=== PATIENT | female | born 1960 ===

== ENCOUNTER 2021-01-29 16:22 | Inpatient (IN) | payer BC ==
[2021-01-29 17:45] LABS: #Lymphocytes 0.9 thou/uL (1.20-3.40); #Monocytes 0.9 thou/uL (0.11-0.59); #Neutrophils 6.4 thou/uL (1.40-6.50); %Basophils 0.2 % (0.0-1.0); %Eosinophils 0.2 % (0.0-10.0); %Lymphocytes 10.8 % (21.0-51.0); %Monocytes 10.8 % (0.0-10.0); %Neutrophils 78.1 % (42.0-75.0); Hemoglobin 15.2 g/dL (12.0-16.0); Mean Corpuscular HGB CONC 32.3 g/dL (32.0-36.0); Mean Corpuscular Hemoglobin 29.4 pg (27.0-31.0); Mean Corpuscular Volume 90.9 fL (78.0-98.0); Mean Platelet Volume 7.6 fL (7.4-10.4); Platelet Count 276 thou/uL (130-400); RBC Distribution Width 11.1 % (11.5-14.5); Red Blood Cell (RBC) Count 5.16 mill/uL (4.20-5.40); White Blood Cell (WBC) Count 8.2 thou/uL (4.8-10.8)
[2021-01-29 18:05] LABS: ALT (SGPT) 13 U/L (8-55); AST (SGOT) 21 U/L (5-34); Albumin 3.7 g/dL (3.5-5.0); Alkaline Phosphatase 58 U/L (40-110); Anion Gap 20 mmol/L (10-20); BUN (Urea Nitrogen) 12 mg/dL (9.8-20.1); Bilirubin, Total 0.5 mg/dL (0.2-1.2); Calc. Creatinine Clearance 0 mL/min (70-130); Calcium 9.5 mg/dL (7.8-10.44); Carbon Dioxide 17 mmol/L (22-29); Chloride 96 mmol/L (98-107); Globulin 3.9 g/dL (2.4-3.5); Glucose 312 mg/dL (70-105); Potassium 4.4 mmol/L (3.5-5.1); Protein, Total 7.6 g/dL (6.0-8.3); Sodium 129 mmol/L (136-145)
[2021-01-29 19:23] LABS: SARS-CoV-2 NAA Rapid Test DETECTED (NotDetected)
[2021-01-29] MEDS ORDERED: Ondansetron ODT 4 MG TAB PO PRN (21:42)
[2021-01-29] MEDS ORDERED: Ondansetron PF 4 MG/2 ML Vial IVP PRN (21:42)
[2021-01-29] MEDS ORDERED: Acetaminophen 650 MG Suppository PR PRN (21:42)
[2021-01-30] MEDS ORDERED: Dextrose 5% in Water 1,000 ML IV PRN (01:03)
[2021-01-30] MEDS ORDERED: Dextrose 50% Abboject 50 ML SYRINGE SLOW IVP PRN (01:03)
[2021-01-30] MEDS ORDERED: Insulin Regular 300 UNITS/3 ML VIAL SC PRN (01:03)
[2021-01-30] MEDS ORDERED: Enoxaparin Sodium 40 MG/0.4 ML SYRINGE SC SCH ×2 (02:30→09:00)
[2021-01-30 04:42] VITALS: BMI 27.4
[2021-01-30] MEDS: HumaLOG 300 UNITS/3 ML VIAL SC PRN ×4 (05:54→21:50)
[2021-01-30 06:06] LABS: #Lymphocytes 0.9 thou/uL (1.20-3.40); #Monocytes 0.8 thou/uL (0.11-0.59); #Neutrophils 5.6 thou/uL (1.40-6.50); %Basophils 0.4 % (0.0-1.0); %Eosinophils 0.1 % (0.0-10.0); %Lymphocytes 12.7 % (21.0-51.0); %Monocytes 11.2 % (0.0-10.0); %Neutrophils 75.6 % (42.0-75.0); Hemoglobin 14.5 g/dL (12.0-16.0); Mean Corpuscular HGB CONC 31.3 g/dL (32.0-36.0); Mean Corpuscular Hemoglobin 28.4 pg (27.0-31.0); Mean Corpuscular Volume 90.9 fL (78.0-98.0); Mean Platelet Volume 7.2 fL (7.4-10.4); Platelet Count 292 thou/uL (130-400); RBC Distribution Width 11.3 % (11.5-14.5); White Blood Cell (WBC) Count 7.4 thou/uL (4.8-10.8)
[2021-01-30 06:27] LABS: Anion Gap 16 mmol/L (10-20); BUN (Urea Nitrogen) 13 mg/dL (9.8-20.1); Calc. Creatinine Clearance 100 mL/min (70-130); Calcium 9.3 mg/dL (7.8-10.44); Carbon Dioxide 19 mmol/L (22-29); Chloride 98 mmol/L (98-107); Glucose 315 mg/dL (70-105); Potassium 3.9 mmol/L (3.5-5.1); Sodium 129 mmol/L (136-145)
[2021-01-30] MEDS ORDERED: Dexamethasone 4 mg/ml Vial SLOW IVP SCH (09:00)
[2021-01-30] MEDS: Acetaminophen 325 MG TAB PO PRN ×2 (09:23→21:17)
[2021-01-30] MEDS: Dexamethasone 4 mg/ml Vial SLOW IVP SCH ×2 (09:23→21:15)
[2021-01-30] MEDS: Cholecalciferol (Vitamin D3) 400 UNITS TAB PO SCH (09:24)
[2021-01-30] MEDS: Ascorbic Acid 500 mg Chewable Tablet PO SCH (09:24)
[2021-01-30] MEDS: Zinc Sulfate 220 MG CAP PO SCH (09:24)
[2021-01-30] MEDS: Benzonatate 100 MG CAP PO PRN ×3 (09:48→21:16)
[2021-01-30] MEDS: Guaifenesin DM 100-10/5 ML UDCUP PO PRN ×2 (11:06→21:18)
[2021-01-30] MEDS ORDERED: HumaLOG 300 UNITS/3 ML VIAL SC SCH (13:15)
[2021-01-30] MEDS ORDERED: sulfaSALAzine 500 MG TAB PO SCH (21:00)
[2021-01-30] MEDS: Enoxaparin Sodium 40 MG/0.4 ML SYRINGE SC SCH (21:16)
[2021-01-30] MEDS: Famotidine 20 MG TAB PO SCH (21:16)
[2021-01-30] MEDS: Melatonin 3 MG TAB PO PRN (21:17)
[2021-01-31] MEDS: HumaLOG 300 UNITS/3 ML VIAL SC PRN ×4 (04:32→21:08)
[2021-01-31] MEDS: Guaifenesin DM 100-10/5 ML UDCUP PO PRN ×4 (04:36→21:07)
[2021-01-31] MEDS: Benzonatate 100 MG CAP PO PRN ×3 (04:36→21:06)
[2021-01-31 06:05] LABS: Hemoglobin 14.8 g/dL (12.0-16.0); Mean Corpuscular HGB CONC 33.8 g/dL (32.0-36.0); Mean Corpuscular Hemoglobin 30.7 pg (27.0-31.0); Mean Corpuscular Volume 90.6 fL (78.0-98.0); Mean Platelet Volume 7.3 fL (7.4-10.4); Platelet Count 339 thou/uL (130-400); RBC Distribution Width 11.1 % (11.5-14.5); Red Blood Cell (RBC) Count 4.82 mill/uL (4.20-5.40); White Blood Cell (WBC) Count 5.7 thou/uL (4.8-10.8)
[2021-01-31 06:14] LABS: Anion Gap 12 mmol/L (10-20); BUN (Urea Nitrogen) 18 mg/dL (9.8-20.1); CRP (Inflammatory) 13.63 mg/dL (= or < 0.5); Calc. Creatinine Clearance 100 mL/min (70-130); Calcium 9.6 mg/dL (7.8-10.44); Carbon Dioxide 23 mmol/L (22-29); Chloride 98 mmol/L (98-107); Glucose 403 mg/dL (70-105); Potassium 4.3 mmol/L (3.5-5.1); Sodium 129 mmol/L (136-145)
[2021-01-31 06:47] LABS: Band 19 % (5-11); Lymphocytes 26 % (21-51); MDiff Complete? YES; Monocytes 4 % (0-10); Neutrophil 43 % (42-75); Reactive Lymphocytes 8 % (0-10)
[2021-01-31] MEDS: Cholecalciferol (Vitamin D3) 400 UNITS TAB PO SCH (09:02)
[2021-01-31] MEDS: Zinc Sulfate 220 MG CAP PO SCH (09:03)
[2021-01-31] MEDS: Dexamethasone 4 mg/ml Vial SLOW IVP SCH ×2 (09:03→21:07)
[2021-01-31] MEDS: Famotidine 20 MG TAB PO SCH ×2 (09:03→21:06)
[2021-01-31] MEDS: Ascorbic Acid 500 mg Chewable Tablet PO SCH (09:03)
[2021-01-31] MEDS: Enoxaparin Sodium 40 MG/0.4 ML SYRINGE SC SCH ×2 (09:03→21:07)
[2021-01-31] MEDS: Melatonin 3 MG TAB PO PRN (21:06)
[2021-01-31] MEDS ORDERED: Dextrose 5% in Water 1,000 ML IV PRN (23:54)
[2021-01-31] MEDS ORDERED: Dextrose 50% Abboject 50 ML SYRINGE SLOW IVP PRN (23:54)
[2021-01-31] MEDS ORDERED: HumaLOG 300 UNITS/3 ML VIAL SC SCH (23:59)
[2021-02-01] MEDS: HumaLOG 300 UNITS/3 ML VIAL SC PRN ×4 (05:27→20:29)
[2021-02-01 06:26] LABS: Hemoglobin 14.4 g/dL (12.0-16.0); Mean Corpuscular HGB CONC 33.3 g/dL (32.0-36.0); Mean Corpuscular Volume 90.1 fL (78.0-98.0); Mean Platelet Volume 7.5 fL (7.4-10.4); Platelet Count 450 thou/uL (130-400); Red Blood Cell (RBC) Count 4.81 mill/uL (4.20-5.40); White Blood Cell (WBC) Count 9.7 thou/uL (4.8-10.8)
[2021-02-01 06:32] LABS: Anion Gap 11 mmol/L (10-20); BUN (Urea Nitrogen) 24 mg/dL (9.8-20.1); CRP (Inflammatory) 5.95 mg/dL (= or < 0.5); Calc. Creatinine Clearance 93 mL/min (70-130); Calcium 9.4 mg/dL (7.8-10.44); Carbon Dioxide 25 mmol/L (22-29); Chloride 97 mmol/L (98-107); Glucose 428 mg/dL (70-105); Potassium 4.1 mmol/L (3.5-5.1); Sodium 129 mmol/L (136-145)
[2021-02-01 06:52] LABS: Band 10 % (5-11); Lymphocytes 14 % (21-51); MDiff Complete? YES; Monocytes 7 % (0-10); Neutrophil 65 % (42-75); Reactive Lymphocytes 4 % (0-10)
[2021-02-01] MEDS ORDERED: Insulin Glargine 5 UNITS in Pre-Filled Syringe 1 EACH SC SCH (09:00)
[2021-02-01] MEDS: Zinc Sulfate 220 MG CAP PO SCH (10:30)
[2021-02-01] MEDS: Dexamethasone 4 mg/ml Vial SLOW IVP SCH (10:30)
[2021-02-01] MEDS: Enoxaparin Sodium 40 MG/0.4 ML SYRINGE SC SCH ×2 (10:30→20:27)
[2021-02-01] MEDS: Cholecalciferol (Vitamin D3) 400 UNITS TAB PO SCH (10:31)
[2021-02-01] MEDS: Ascorbic Acid 500 mg Chewable Tablet PO SCH (10:31)
[2021-02-01] MEDS: Famotidine 20 MG TAB PO SCH ×2 (10:31→20:26)
[2021-02-01] MEDS: Guaifenesin DM 100-10/5 ML UDCUP PO PRN ×2 (10:32→20:25)
[2021-02-01] MEDS: Lantus 1000 UNITS/10 ML VIAL SC SCH (10:34)
[2021-02-01] MEDS ORDERED: Sodium Chloride 0.9% 1,000 ML IV SCH (17:15)
[2021-02-01] MEDS: Benzonatate 100 MG CAP PO PRN (20:26)
[2021-02-01] MEDS: Melatonin 3 MG TAB PO PRN (20:26)
[2021-02-01] MEDS ORDERED: Lantus 1000 UNITS/10 ML VIAL SC SCH (21:00)
[2021-02-02] MEDS: HumaLOG 300 UNITS/3 ML VIAL SC PRN ×4 (05:12→20:23)
[2021-02-02 06:20] LABS: #Monocytes 0.8 thou/uL (0.11-0.59); #Neutrophils 5.5 thou/uL (1.40-6.50); %Basophils 0.1 % (0.0-1.0); %Eosinophils 0.3 % (0.0-10.0); %Lymphocytes 13.3 % (21.0-51.0); %Monocytes 10.9 % (0.0-10.0); %Neutrophils 75.4 % (42.0-75.0); Hemoglobin 13.3 g/dL (12.0-16.0); Mean Corpuscular Hemoglobin 29.8 pg (27.0-31.0); Mean Corpuscular Volume 90.6 fL (78.0-98.0); Mean Platelet Volume 6.8 fL (7.4-10.4); Platelet Count 429 thou/uL (130-400); RBC Distribution Width 11.1 % (11.5-14.5); Red Blood Cell (RBC) Count 4.47 mill/uL (4.20-5.40); White Blood Cell (WBC) Count 7.3 thou/uL (4.8-10.8)
[2021-02-02 06:50] LABS: Anion Gap 9 mmol/L (10-20); BUN (Urea Nitrogen) 22 mg/dL (9.8-20.1); CRP (Inflammatory) 2.87 mg/dL (= or < 0.5); Calc. Creatinine Clearance 104 mL/min (70-130); Calcium 8.7 mg/dL (7.8-10.44); Carbon Dioxide 24 mmol/L (22-29); Chloride 101 mmol/L (98-107); Glucose 351 mg/dL (70-105); Potassium 3.9 mmol/L (3.5-5.1); Sodium 130 mmol/L (136-145)
[2021-02-02] MEDS: Famotidine 20 MG TAB PO SCH ×2 (08:55→20:22)
[2021-02-02] MEDS: Cholecalciferol (Vitamin D3) 400 UNITS TAB PO SCH (08:55)
[2021-02-02] MEDS: Ascorbic Acid 500 mg Chewable Tablet PO SCH (08:56)
[2021-02-02] MEDS: Dexamethasone 4 mg/ml Vial SLOW IVP SCH (08:56)
[2021-02-02] MEDS: Zinc Sulfate 220 MG CAP PO SCH (08:56)
[2021-02-02] MEDS: Benzonatate 100 MG CAP PO PRN ×2 (08:56→20:22)
[2021-02-02] MEDS: Guaifenesin DM 100-10/5 ML UDCUP PO PRN ×2 (08:57→20:23)
[2021-02-02] MEDS: Lantus 1000 UNITS/10 ML VIAL SC SCH ×2 (08:57→20:24)
[2021-02-02] MEDS: Enoxaparin Sodium 40 MG/0.4 ML SYRINGE SC SCH ×2 (08:57→20:22)
[2021-02-02] MEDS ORDERED: Lantus 1000 UNITS/10 ML VIAL SC SCH (10:45)
[2021-02-02] MEDS: Melatonin 3 MG TAB PO PRN (20:22)
[2021-02-02] MEDS: Acetaminophen 325 MG TAB PO PRN (20:22)
[2021-02-03] MEDS: HumaLOG 300 UNITS/3 ML VIAL SC PRN ×4 (05:14→21:09)
[2021-02-03] MEDS: Ascorbic Acid 500 mg Chewable Tablet PO SCH (10:20)
[2021-02-03] MEDS: Zinc Sulfate 220 MG CAP PO SCH (10:20)
[2021-02-03] MEDS: Cholecalciferol (Vitamin D3) 400 UNITS TAB PO SCH (10:20)
[2021-02-03] MEDS: Enoxaparin Sodium 40 MG/0.4 ML SYRINGE SC SCH ×2 (10:20→21:09)
[2021-02-03] MEDS: Dexamethasone 4 mg/ml Vial SLOW IVP SCH (10:21)
[2021-02-03] MEDS: Famotidine 20 MG TAB PO SCH ×2 (10:21→21:08)
[2021-02-03] MEDS: Lantus 1000 UNITS/10 ML VIAL SC SCH ×2 (10:22→21:08)
[2021-02-03] MEDS: Guaifenesin DM 100-10/5 ML UDCUP PO PRN (13:55)
[2021-02-03] MEDS: Benzonatate 100 MG CAP PO PRN (13:55)
[2021-02-04] MEDS: HumaLOG 300 UNITS/3 ML VIAL SC PRN ×5 (05:26→20:24)
[2021-02-04] MEDS: Ascorbic Acid 500 mg Chewable Tablet PO SCH (08:15)
[2021-02-04] MEDS: Famotidine 20 MG TAB PO SCH ×2 (08:15→20:23)
[2021-02-04] MEDS: Dexamethasone 4 MG TAB PO SCH (08:15)
[2021-02-04] MEDS: Enoxaparin Sodium 40 MG/0.4 ML SYRINGE SC SCH ×2 (08:15→20:23)
[2021-02-04] MEDS: Cholecalciferol (Vitamin D3) 400 UNITS TAB PO SCH (08:15)
[2021-02-04] MEDS: Zinc Sulfate 220 MG CAP PO SCH (08:16)
[2021-02-04] MEDS: Lantus 1000 UNITS/10 ML VIAL SC SCH ×2 (08:16→20:24)
[2021-02-04] MEDS: Benzonatate 100 MG CAP PO PRN ×2 (09:13→16:52)
[2021-02-04] MEDS: GUAIFENESIN DM SF 5 ML UDCUP PO PRN ×2 (13:20→23:19)
[2021-02-05] MEDS: HumaLOG 300 UNITS/3 ML VIAL SC PRN ×4 (04:36→20:41)
[2021-02-05 05:51] LABS: #Basophils 0.1 thou/uL (0.0-0.2); #Eosinphils 0.1 thou/uL (0.0-0.7); #Lymphocytes 3.1 thou/uL (1.20-3.40); #Monocytes 0.9 thou/uL (0.11-0.59); #Neutrophils 5.8 thou/uL (1.40-6.50); %Basophils 0.9 % (0.0-1.0); %Eosinophils 0.8 % (0.0-10.0); %Lymphocytes 31.2 % (21.0-51.0); %Neutrophils 58.1 % (42.0-75.0); Hemoglobin 14.5 g/dL (12.0-16.0); Mean Corpuscular HGB CONC 32.6 g/dL (32.0-36.0); Mean Corpuscular Hemoglobin 29.5 pg (27.0-31.0); Mean Corpuscular Volume 90.5 fL (78.0-98.0); Mean Platelet Volume 6.4 fL (7.4-10.4); Platelet Count 516 thou/uL (130-400); Red Blood Cell (RBC) Count 4.92 mill/uL (4.20-5.40); White Blood Cell (WBC) Count 9.9 thou/uL (4.8-10.8)
[2021-02-05 06:17] LABS: Anion Gap 10 mmol/L (10-20); BUN (Urea Nitrogen) 18 mg/dL (9.8-20.1); Calc. Creatinine Clearance 89 mL/min (70-130); Calcium 9.1 mg/dL (7.8-10.44); Carbon Dioxide 26 mmol/L (22-29); Chloride 97 mmol/L (98-107); Glucose 355 mg/dL (70-105); Potassium 4.1 mmol/L (3.5-5.1); Sodium 129 mmol/L (136-145)
[2021-02-05] MEDS: Lantus 1000 UNITS/10 ML VIAL SC SCH ×2 (08:04→20:40)
[2021-02-05] MEDS: Enoxaparin Sodium 40 MG/0.4 ML SYRINGE SC SCH ×2 (08:05→20:43)
[2021-02-05] MEDS: Dexamethasone 4 MG TAB PO SCH (08:05)
[2021-02-05] MEDS: Zinc Sulfate 220 MG CAP PO SCH (08:05)
[2021-02-05] MEDS: Famotidine 20 MG TAB PO SCH ×2 (08:05→20:40)
[2021-02-05] MEDS: Cholecalciferol (Vitamin D3) 400 UNITS TAB PO SCH (08:05)
[2021-02-05] MEDS: Ascorbic Acid 500 mg Chewable Tablet PO SCH (08:05)
[2021-02-05] MEDS: Benzonatate 100 MG CAP PO PRN (08:08)
[2021-02-05] MEDS: GUAIFENESIN DM SF 5 ML UDCUP PO PRN (13:37)
[2021-02-06] MEDS: HumaLOG 300 UNITS/3 ML VIAL SC PRN ×4 (05:07→20:30)
[2021-02-06 06:51] LABS: #Basophils 0.1 thou/uL (0.0-0.2); #Eosinphils 0.1 thou/uL (0.0-0.7); #Lymphocytes 2.2 thou/uL (1.20-3.40); #Neutrophils 7.1 thou/uL (1.40-6.50); %Basophils 0.9 % (0.0-1.0); %Eosinophils 0.7 % (0.0-10.0); %Lymphocytes 20.9 % (21.0-51.0); %Monocytes 9.9 % (0.0-10.0); %Neutrophils 67.6 % (42.0-75.0); Mean Corpuscular HGB CONC 33.7 g/dL (32.0-36.0); Mean Corpuscular Hemoglobin 30.7 pg (27.0-31.0); Mean Corpuscular Volume 91.1 fL (78.0-98.0); Mean Platelet Volume 6.6 fL (7.4-10.4); Platelet Count 559 thou/uL (130-400); RBC Distribution Width 11.2 % (11.5-14.5); Red Blood Cell (RBC) Count 4.57 mill/uL (4.20-5.40); White Blood Cell (WBC) Count 10.5 thou/uL (4.8-10.8)
[2021-02-06 07:10] LABS: Anion Gap 10 mmol/L (10-20); BUN (Urea Nitrogen) 23 mg/dL (9.8-20.1); CRP (Inflammatory) 0.94 mg/dL (= or < 0.5); Calc. Creatinine Clearance 87 mL/min (70-130); Calcium 9.2 mg/dL (7.8-10.44); Carbon Dioxide 28 mmol/L (22-29); Chloride 96 mmol/L (98-107); Glucose 335 mg/dL (70-105); Potassium 4.3 mmol/L (3.5-5.1); Sodium 130 mmol/L (136-145)
[2021-02-06] MEDS: Cholecalciferol (Vitamin D3) 400 UNITS TAB PO SCH (08:39)
[2021-02-06] MEDS: Dexamethasone 4 MG TAB PO SCH (08:40)
[2021-02-06] MEDS: Ascorbic Acid 500 mg Chewable Tablet PO SCH (08:40)
[2021-02-06] MEDS: Zinc Sulfate 220 MG CAP PO SCH (08:40)
[2021-02-06] MEDS: Famotidine 20 MG TAB PO SCH ×2 (08:40→20:32)
[2021-02-06] MEDS: Lantus 1000 UNITS/10 ML VIAL SC SCH ×2 (08:41→20:30)
[2021-02-06] MEDS: Enoxaparin Sodium 40 MG/0.4 ML SYRINGE SC SCH ×2 (08:42→19:49)
[2021-02-07] MEDS: Ascorbic Acid 500 mg Chewable Tablet PO SCH (08:31)
[2021-02-07] MEDS: Zinc Sulfate 220 MG CAP PO SCH (08:31)
[2021-02-07] MEDS: Cholecalciferol (Vitamin D3) 400 UNITS TAB PO SCH (08:31)
[2021-02-07] MEDS: Dexamethasone 4 MG TAB PO SCH (08:31)
[2021-02-07] MEDS: Famotidine 20 MG TAB PO SCH ×2 (08:32→20:31)
[2021-02-07] MEDS: Lantus 1000 UNITS/10 ML VIAL SC SCH ×2 (08:33→20:32)
[2021-02-07] MEDS: Enoxaparin Sodium 40 MG/0.4 ML SYRINGE SC SCH ×2 (08:46→20:31)
[2021-02-07] MEDS: HumaLOG 300 UNITS/3 ML VIAL SC PRN ×3 (12:30→20:32)
[2021-02-08] MEDS: HumaLOG 300 UNITS/3 ML VIAL SC PRN ×2 (05:54→13:27)
[2021-02-08] MEDS: Ascorbic Acid 500 mg Chewable Tablet PO SCH (08:56)
[2021-02-08] MEDS: Dexamethasone 4 MG TAB PO SCH (08:56)
[2021-02-08] MEDS: Zinc Sulfate 220 MG CAP PO SCH (08:56)
[2021-02-08] MEDS: Cholecalciferol (Vitamin D3) 400 UNITS TAB PO SCH (08:56)
[2021-02-08] MEDS: Lantus 1000 UNITS/10 ML VIAL SC SCH (08:57)
[2021-02-08] MEDS: Famotidine 20 MG TAB PO SCH (08:57)
[2021-02-08] MEDS: Enoxaparin Sodium 40 MG/0.4 ML SYRINGE SC SCH (08:57)
[2021-02-08 15:27] VITALS: BP 113/73; TEMP 97.1
[2021-02-08] MEDS: Benzonatate 100 MG CAP PO PRN (16:21)
== END 2021-02-08 17:28 | DRG 177 ==
LOC: ERS 16:22 → T4-A 18:00
PROVIDERS: ADMIT Internal Medicine; ATTEND Student in an Organized Health Care Education/Training Program
PROC: 8E0ZXY6 Isolation (ICD-10-PCS; principal; 2021-01-29)
DX: U07.1 COVID-19 (principal); J96.01 Acute respiratory failure with hypoxia; J12.82 Pneumonia due to coronavirus disease 2019; E87.1 Hypo-osmolality and hyponatremia; E11.65 Type 2 diabetes mellitus with hyperglycemia; M19.90 Unspecified osteoarthritis, unspecified site; M45.9 Ankylosing spondylitis of unspecified sites in spine; Z91.11 Patient's noncompliance with dietary regimen; Z90.89 Acquired absence of other organs; Z79.899 Other long term (current) drug therapy; Z79.84 Long term (current) use of oral hypoglycemic drugs
CPT/HCPCS: 0240U; 36415; 36416; 71045; 80048; 80053; 82728; 84484; 85025; 85379; 86140; 93005; J1100; J1650; J1815; J8540